=== PATIENT | female | born 1975 | race Caucasian/White ===

== ENCOUNTER 2019-05-17 01:43 | Inpatient (IN) | payer OTHER ==
--- NOTE | 2019-05-16 10:41 | HISTORY AND PHYSICAL ---
DATE OF ADMISSION: May 17, 2019 IDENTIFICATION/CHIEF COMPLAINT Inga is a 43-year old woman with a chief complaint of intractable left knee pain. HISTORY OF PRESENT ILLNESS Patient has a longstanding history of arthritis. This has been managed conservatively for a long time but has become progressively painful and debilitating and refractory to conservative care. Surgery is indicated to relieve symptoms after failure of nonoperative measures. PAST MEDICAL HISTORY 1. History of atrial fibrillation. 2. Struggle with chronic weight management. 3. Type 2 diabetes or prediabetes. PAST SURGICAL HISTORY Negative. FAMILY HISTORY Notable for both parents with diabetes, mother with hypertension and anemia. SOCIAL HISTORY Negative for tobacco use. She drinks alcohol socially on occasion. Denies abuse. ALLERGIES Denies. CURRENT MEDICATIONS 1. Metformin 1000 mg p.o. q.h.s. 2. Magnesium one 500 mg tablet p.o. q.d. 3. Celebrex 200 mg p.o. b.i.d. 4. Lisinopril 40 mg p.o. q.d. 5. Flecainide 100 mg p.o. b.i.d. 6. Xarelto 20 mg p.o. q.d. REVIEW OF SYSTEMS Noncontributory. PHYSICAL EXAMINATION GENERAL: Healthy female. She appears stated age. HEENT: Normocephalic, atraumatic. NECK: Supple. LUNGS: Clear. ABDOMEN: Soft. ORTHOPEDIC EXAM The left knee has extreme crepitus. She has moderate to large effusion. She is stiffened on range of motion. Gross stability is good. Extensor function is intact. Radiographs demonstrate end-stage knee DJD. ASSESSMENT Left knee end-stage degenerative joint disease, progressively painful and debilitating and refractory to conservative care. PLAN Per patient's request, we are going to proceed with total knee arthroplasty. The nature of the procedure, risks, benefits and anticipatory rehab course were outlined. The risks of the procedure include, but are not limited to, , major medical or anesthetic complications, infection, neurovascular injury, blood transfusion, stiffness, scarring, fracture, tendon rupture, instability, implant loosening, migration or failure, persistent recurrent pain, need for additional surgery and other unforeseen. We spent a lot of time today discussing the concerns about arthroplasty in the young and the risks associated with revision. All of her questions were answered. No guarantees given or implied. Signed permit is in the chart. [facility]
[2019-05-16 15:18] LABS: INR 0.96
[2019-05-17] VITALS (9 sets, daily range): BP systolic 111–143; BP diastolic 70–99
[~2019-05-17] VITALS: Ht 175.3 cm; Wt 132.9 kg
[~2019-05-17 01:43] MED LIST: ACAI500C PO; CALC166. PO; CELE-1 PO; CHOL10005 PO; CHRO1TAB2 TOP; CINN500C12 PO; FLE100 PO; GEMF600T96 PO; GLUC100026 PO; LISI-374 PO; MAGNESIUM PO; MELA3TAB45 PO; METF-452 PO; MILK500C2 PO; RASP100C PO; RIVA10TA PO
[2019-05-17] MEDS ORDERED: LIDOCAINE/SOD BICARB 8.4% SYR ID ONE (06:15)
[2019-05-17] MEDS ORDERED: CELECOXIB 200 MG CAP PO ONE (06:15)
[2019-05-17] MEDS ORDERED: ceFAZolin(*) 1 GM VIAL 3 GM in NS(*) 0.9% 100 ML BAG 100 ML IVPB ONE ×2 (06:15)
[2019-05-17] MEDS ORDERED: PREGABALIN 150 MG CAPSULE PO ONE (06:15)
[2019-05-17] MEDS ORDERED: MIDAZOLAM 2 MG/2 ML VIAL IVP PRN (06:15)
[2019-05-17] MEDS ORDERED: FAMOTIDINE 20 MG TAB PO ONE (06:15)
[2019-05-17] MEDS ORDERED: TRANEXAMIC AC 1000 MG/10ML SDV 1,000 MG in DEXTROSE 5% 50 ML BAG 50 ML IV ONE ×2 (06:15)
[2019-05-17] MEDS ORDERED: ACETAMINOPHEN 500 MG TAB PO ONE (06:15)
[2019-05-17] MEDS ORDERED: ROPIVACAINE/EPI/CLONIDINE/KET 50 ML SYRINGE INJ ONE ×2 (06:15)
[2019-05-17] MEDS ORDERED: NORMOSOL R SOLN(*) 1000 ML BAG 1,000 ML IV PRN ×2 (06:15→14:05)
[2019-05-17] MEDS ORDERED: METOCLOPRAMIDE 10 MG/2 ML SDV ONE (07:59)
[2019-05-17] MEDS ORDERED: LIDOCAINE MPF 1% 5 ML VIAL ONE (07:59)
[2019-05-17] MEDS ORDERED: PROPOFOL EMUL(*) 10MG/ML 20 ML 40 ML ONE (07:59)
[2019-05-17] MEDS ORDERED: ONDANSETRON 4 MG/2 ML VIAL ONE (07:59)
[2019-05-17] MEDS ORDERED: DEXAMETHASONE SOD 4 MG/ML VIAL ONE (08:00)
[2019-05-17] MEDS ORDERED: fentaNYL CITR 100 MCG/2 ML AMP ONE ×2 (08:04→14:16)
[2019-05-17] MEDS ORDERED: VANCOMYCIN 1 GM VIAL ONE (10:41)
[2019-05-17] MEDS ORDERED: ePHEDrine 25 MG/5 ML DISP.SYR IVP ONE (11:20)
[2019-05-17] MEDS ORDERED: diphenhydrAMINE 50 MG/ML VIAL IVP PRN (14:05)
[2019-05-17] MEDS ORDERED: PROMETHAZINE 25 MG/ML 1 ML AMP IVP PRN (14:05)
[2019-05-17] MEDS ORDERED: BENZOCAINE/MENTHOL 1 EACH LOZG PO PRN (14:05)
[2019-05-17] MEDS ORDERED: diphenhydrAMINE 25 MG CAP PO PRN (14:05)
[2019-05-17] MEDS ORDERED: FLUSH 10 ML SYR IVP PRN (14:05)
[2019-05-17] MEDS ORDERED: BISACODYL 10 MG SUPP PR PRN (14:05)
[2019-05-17] MEDS ORDERED: ZOLPIDEM TARTRATE 5 MG TAB PO PRN (14:05)
[2019-05-17] MEDS ORDERED: ACETAMINOPHEN 325 MG TAB PO PRN (14:05)
[2019-05-17] MEDS ORDERED: MAGNESIUM HYDROXIDE* 30ML UDCP PO PRN (14:05)
--- NOTE | 2019-05-17 14:11 | RADIOLOGY IMAGING REPORT ---
FACILITY: [facility] [place] PATIENT NAME: Annette Hermosillo : 1975 MR: [id number] V: [id number] EXAM DATE: ORDERING PHYSICIAN: GINA MALONE TECHNOLOGIST: Location: [facility] [place] Patient: Annette Hermosillo : 1975 Visit/Account:[id number] Date of Sevice: 05/17/2019 KNEE LIMITED LEFT Indication: POST LEFT TKA Comparison: None. Findings: There are postoperative changes from a left total knee arthroplasty. The femoral, tibial, and patellar components are normal in position. There is soft tissue swelling in the prepatellar spa ce. Impression: Postoperative changes left total knee arthroplasty. Report Dictated By: Kingsley Angel at 05/17/2019 2:01 PM Report E-Signed By: Kingsley Angel at 05/17/2019 2:02 PM WSN:[id number]
--- NOTE | 2019-05-17 14:39 | OPERATIVE REPORT 1 ---
EVENT DATE: May 17, 2019 SURGEON: Richard Santo MD ANESTHESIOLOGIST: Silvio Adames MD ANESTHESIA: General plus spinal. DENTAL DIRECTOR: EDIL Alvarez PREOPERATIVE DIAGNOSIS Left knee degenerative joint disease. POSTOPERATIVE DIAGNOSIS Left knee degenerative joint disease. PROCEDURE PERFORMED Left total knee arthroplasty. ESTIMATED BLOOD LOSS Minimal. DRAINS None. SPECIMENS None. COMPLICATIONS None apparent. TOURNIQUET TIME 53 minutes. IMPLANTS USED [place] Triathlon knee system, a 4 size PS femur, a 5 standard tibial baseplate, a 33 mm universal symmetric all polyethylene patella button, 13 mm PS tibial tray, X3 polyethylene. INDICATIONS Annette is a 43-year old woman with end-stage arthritis in her knee. She has had progressive pain and disability refractory to prolonged conservative care. Surgery is indicated to relieve symptoms after failure of nonoperative measures. DESCRIPTION OF PROCEDURE The patient was taken to the operating room and placed supine on the operating table. General anesthesia was induced after spinal block was administered by the anesthesiologist. Antibiotics and TXA were administered IV. The left lower extremity was prepped and draped in the usual sterile fashion for orthopedic surgery. The limb was exsanguinated with an Esmarch bandage. The tourniquet was inflated to 275 mmHg. A midline longitudinal incision was made and carried down through the skin and subcutaneous tissue to the extensor mechanism. A full-thickness flap was developed far enough medially to allow medial parapatellar arthrotomy to be performed. The patella was everted. The knee was brought into a flexed position. The fat pad, anterior horns of the menisci and cruciate ligaments were debrided. Subperiosteal medial release was initiated in titrated fashion to start to balance the knee. A step drill was used to enter the distal femur. A 10-inch long alignment guide was used to engage the isthmus. Cut was set for 6 degrees of valgus relative to the anatomic axis. A 10 mm resection block was applied and pinned and distal femoral cut was made with an oscillating saw. The AP sizing guide was applied to this cut, positioned for 3 degrees of external rotation relative to the posterior condyles. A size 4 was optimal without risk of notching. The four-in-one cutting block was applied. Anterior, posterior, posterior chamfer and anterior chamfer cuts were made respectively. A PS block was applied and centered appropriately mediolateral and the bone was removed from the box. The trial femur has nice [id number] fit. Attention was turned to tibial preparation. The extramedullary guide was applied and positioned for varus, valgus, posterior slope and rotation. This was set to resect 9 from the relatively intact lateral tibial plateau. It was dropped down another millimeter or two to ensure an adequate cut. The block was pinned, extramedullary alignment check was made and the cut was made with an oscillating saw. Significant osteophytes were removed from the posterior recess. All additional flecks removed. At this point, the gaps were balanced and symmetric. No additional release is required. A size 4 baseplate provides optimal bony coverage without soft tissue overhang and this was inserted along with a trial liner and trial femur. The knee was brought into extension. The patella was taken from a starting thickness of 23 mm to a residual of 14 with a patellar clamp and an oscillating saw. The 33 provides optimal bony coverage without soft tissue overhang. Lug holes were drilled. The patella tracts nicely with a no-touch technique. Final tibial preparation consisted of ensuring appropriate rotational and translational position of the component. The box was reamed and the fin was punched. Surfaces were lavaged. A mix of methylmethacrylate was made and the components were cemented in a single stage. Once the cement was fully polymerized, the tourniquet was deflated and hemostasis was assured. The wounds were copiously lavaged to remove all loose debris. The 16 PS tibial tray liner provides optimal stability, allowing the knee to drop to full extension without hyperextension, providing optimal soft tissue tension and stability. The tray was lavaged and dried and the actual liner was locked into the baseplate. Joint was reduced. The arthrotomy was closed in flexion with #2 Ethibond, subcutaneous tissue with 3-0 Vicryl and the skin with a ZipLine closure. Xeroform was applied followed by a dry, sterile dressing and a compression wrap. The patient was awakened from the anesthesia and taken to the recovery room in stable condition, having tolerated the procedure well. Plan is for standard TKA rehab protocol. [facility]
[2019-05-17] MEDS: APAP/HYDROCODONE 325/7.5 TAB PO PRN ×2 (15:50→20:16)
--- NOTE | 2019-05-17 15:52 | Hospitalist Consultation ---
History of Present Illness Requesting Physician Dr. Santo Reason for Consult Medical Management of Comorbidities Chief Complaint s/p left knee replacement History of Present Illness She was admitted s/p left knee replacement. It is reported the surgery went well and without complication. History Problems: (1) Hypertension Status: Chronic (2) Hyperlipidemia Status: Chronic (3) Type 2 diabetes mellitus Status: Chronic (4) Atrial fibrillation Status: Chronic Home Meds Reported Medications Gemfibrozil (GEMFIBROZIL) 600 Mg Tablet, 600 MG PO BID 05/10/19 Milk Thistle (MILK THISTLE) 500 Mg Capsule, 500 MG PO QDAY, CAPSULE 05/10/19 Flecainide Acetate (FLECAINIDE ACETATE) 100 Mg Tab, 100 MG PO BID, TAB 05/10/19 Rivaroxaban 10 MG (Xarelto 10 MG) 10 Mg Tablet, 20 MG PO QDAY 05/10/19 Cholecalciferol (Vitamin D3) (VITAMIN D3) 1,000 Unit Tablet, 1000 UNIT PO, TAB 05/10/19 Melatonin (MELATONIN) 3 Mg Tablet.er, 3 MG PO QDAY 05/10/19 Glucosamine Sulfate 2KCL (GLUCOSAMINE) 1,000 Mg Tablet, 1000 MG PO QDAY 05/10/19 Calcium/Vits D3/C/K2/Minerals (Bone Essentials Capsule) 166.75 Mg Capsule, 1 CAP PO QDAY 05/10/19 [Magnesium] No Conflict Check, 500 MG PO QDAY 05/10/19 Metformin Hcl (METFORMIN HCL) 1,000 Mg Tablet, 1 TAB PO BID, TAB 05/10/19 Acai Gill Extract (ACAI) 500 Mg Capsule, 1000 MG PO QDAY, CAPSULE 05/10/19 Cinnamon Bark (CINNAMON) 500 Mg Capsule, 1000 MG PO QDAY, CAPSULE 05/10/19 Chrom Yola/Brindall Gill (GARCINIA CAMBOGIA TABLET) 1 Each Tablet, 100 MG TOP QDAY 05/10/19 Lisinopril (LISINOPRIL) 40 Mg Tablet, 40 MG PO QDAY, TAB 05/10/19 Celecoxib (CELEBREX) 200 Mg Capsule, 200 MG PO BID, CAPSULE 05/10/19 Discontinued Reported Medications Raspberry Ketone (Raspberry Ketones) 100 Mg Capsule, 600 MG PO QDAY 05/10/19 Allergies: Coded Allergies: No Known Drug Allergies (Unverified , 05/10/19) Patient History: FH: HTN (hypertension) MOTHER FH: anemia MOTHER FH: arthritis MOTHER Hx Smoking: No Caffeine Intake: Coffee Caffeine/Cups Per Day: 1 CPD Hx Alcohol Use: Yes Hx Substance Use Disorder: No Review of Systems All Systems Reviewed/Normal: Yes, Except as Noted Exam Vital Signs Vital Signs Date Time Temp Pulse Resp B/P (MAP) Pulse Ox O2 Delivery O2 Flow Rate FiO2 05/17/19 15:15 97.7 82 16 130/84 (99) 98 Nasal Cannula 0.5 General Appearance: Alert, Awake, No Acute Distress, Afebrile Neuro: No Gross deficits Cardiovascular: Regular Rate and Rhythm Respiratory: No Respiratory Distress, Clear to Auscultation Psych: Alert & Oriented X3, Appropriate Mood & Affect Assessment and Plan Problems: (1) Status post left knee replacement Status: Acute Assessment & Plan: Followed by Dr. Santo. She will be placed on her usual dose of Xarelto for DVT prophylaxis. (2) Atrial fibrillation Status: Chronic Assessment & Plan: She is on chronic treatment with Flecainide and Xarelto. Continue. (3) Type 2 diabetes mellitus Status: Chronic Assessment & Plan: Continue chronic Metformin. She will also be placed on SS insulin #2, ADA diet, and AC/ HS blood glucose monitoring. (4) Hypertension Status: Chronic Assessment & Plan: Continue chronic Lisinopril with hold parameters. (5) Hyperlipidemia Status: Chronic Assessment & Plan: Continue chronic Gemfibrozil. Venous Thromboembolism Antithrombotics Is Pt On Any Antithrombotics?: Yes Problem Qualifiers (1) Hypertension: Hypertension type: essential hypertension Qualified Codes: I10 - Essential (primary) hypertension KATHLEEN MOORE DRUM SANDER May 17, 2019 15:52
[2019-05-17] MEDS: CELECOXIB 200 MG CAP PO SCH (16:31)
[2019-05-17] MEDS: INSULIN HUM LISPRO 100 UN/ML 3 ML VIAL SUBQ PRN ×2 (17:27→20:18)
--- NOTE | 2019-05-17 17:55 | NUR ---
Physical Therapy Impression PT eval completed. Pt tolerated ambulation to/from BR with good step-through technique. Pt's dressing did become dislodged inferiorly and some bleeding noted at superior edge of dressing. PT applied abd pad secured with ian wrap upon return to bed and then instructed pt in use of CPM and advancing flexion as tolerated. Physical Therapy Goals 1. Pt to be SBA/CGA for bed mobility and supine to/from sit 2. Pt to be SBA/CGA for sit to/from stand transfers 3. Pt to tolerate ambulation x 100' with 4WW safely 4. Pt to complete up/down platform step x 2 reps to simulate entry to home. Patient's Goals
[2019-05-17] MEDS ORDERED: NS(*) 0.9% 250 ML BAG 250 ML ONE (19:08)
[2019-05-17] MEDS: ceFAZolin(*) 1 GM VIAL 1 GM in NS(*) 0.9% 100 ML MINI-BAG 100 ML IVPB SCH (19:14)
[2019-05-17] MEDS: GEMFIBROZIL 600 MG TAB PO SCH (20:16)
[2019-05-17] MEDS: FLECAINIDE ACETATE 100 MG TAB PO SCH (20:17)
[2019-05-17] MEDS: DIAZEPAM 5 MG TAB PO PRN (21:27)
[2019-05-17] MEDS: MELATONIN 3 MG TAB PO SCH (21:27)
[2019-05-18 03:19] VITALS: BP 116/67
[2019-05-18] MEDS: ceFAZolin(*) 1 GM VIAL 1 GM in NS(*) 0.9% 100 ML MINI-BAG 100 ML IVPB SCH ×2 (03:20→11:12)
[2019-05-18] MEDS: APAP/HYDROCODONE 325/7.5 TAB PO PRN ×5 (03:44→20:33)
[2019-05-18] MEDS: DIAZEPAM 5 MG TAB PO PRN ×2 (04:14→11:02)
[2019-05-18 07:41] VITALS: BP 137/85
[2019-05-18] MEDS ORDERED: HYDR-654 PO (07:52)
[2019-05-18] MEDS: metFORMIN HCL 500 MG TAB PO SCH ×2 (07:57→17:10)
[2019-05-18] MEDS: CELECOXIB 200 MG CAP PO SCH ×2 (07:57→17:10)
[2019-05-18] MEDS ORDERED: RIVAROXABAN 10 MG TAB PO SCH ×2 (09:00→21:00)
[2019-05-18] MEDS: LISINOPRIL 20 MG TAB PO SCH (09:00)
[2019-05-18 09:17] VITALS: Ht 175.3 cm; Wt 132.9 kg
[2019-05-18] MEDS: FLECAINIDE ACETATE 100 MG TAB PO SCH ×2 (09:26→20:33)
[2019-05-18] MEDS: INSULIN HUM LISPRO 100 UN/ML 3 ML VIAL SUBQ PRN ×4 (09:27→20:34)
[2019-05-18] MEDS: GEMFIBROZIL 600 MG TAB PO SCH ×2 (09:27→20:33)
--- NOTE | 2019-05-18 09:29 | Hospitalist Progress Note ---
Subjective Progress Notes Subjective She was admitted s/p knee replacement. She reports she has pain to the surgical site. Patient Complains of: Cardiovascular: No: Chest Pain Respiratory: No: Shortness of Breath Physical Exam Vital Signs Date Time Temp Pulse Resp B/P (MAP) Pulse Ox O2 Delivery O2 Flow Rate FiO2 05/18/19 07:41 96 Room Air 05/18/19 07:41 97.9 84 16 137/85 (102) 05/18/19 03:19 2.0 Intake and Output 05/18/19 01:03 Intake Total 3480 ml Output Total 0 ml Balance 3480 ml Intake Oral 1380 ml IV Total 2000 ml Other 100 ml Output Estimated Blood Loss 0 ml # Voids 1 General Appearance: Alert, Awake, No Acute Distress, Afebrile Neuro: No Gross deficits Cardiovascular: Regular Rate and Rhythm Respiratory: No Respiratory Distress, Clear to Auscultation Psych: Alert & Oriented X3, Appropriate Mood & Affect Assessment and Plan Problems: (1) Status post left knee replacement Status: Acute Assessment & Plan: Followed by Dr. Santo. She will be placed on her usual dose of Xarelto for DVT prophylaxis. (2) Atrial fibrillation Status: Chronic Assessment & Plan: She is on chronic treatment with Flecainide and Xarelto. Continue. (3) Type 2 diabetes mellitus Status: Chronic Assessment & Plan: Continue chronic Metformin. She will also be placed on SS insulin #2, ADA diet, and AC/ HS blood glucose monitoring. She has not been following ADA diet. She reports she also does not check her sugars at home. Encouraged better control of glucose levels post-operatively to prevent infection. (4) Hypertension Status: Chronic Assessment & Plan: Continue chronic Lisinopril with hold parameters. (5) Hyperlipidemia Status: Chronic Assessment & Plan: Continue chronic Gemfibrozil. (6) Morbid obesity with BMI of 40.0-44.9, adult Status: Chronic Assessment & Plan: BMI 43. Exam Sepsis Risk: No Definite Risk Problem Qualifiers (1) Atrial fibrillation: Atrial fibrillation type: paroxysmal Qualified Codes: I48.0 - Paroxysmal atrial fibrillation (2) Hypertension: Hypertension type: essential hypertension Qualified Codes: I10 - Essential (primary) hypertension KATHLEEN MOORE [facility] May 18, 2019 09:29
--- NOTE | 2019-05-18 10:52 | NUR ---
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 Pt demos decreased balance and decreased level of cognition as well as decreased alertness. Pt notes that she felt weak and confused after transferring to toilet. BP in safe range, however, nursing alerted to ensure pt's safety and assist with W/C follow back to bed. PT will attempt distance ambulation goal this afternoon. Pt tearful upon return to bed and notes that pain still does not feel controlled effectively. Physical Therapy Goals 1. Pt to be SBA/CGA for bed mobility and supine to/from sit 2. Pt to be SBA/CGA for sit to/from stand transfers 3. Pt to tolerate ambulation x 100' with 4WW safely 4. Pt to complete up/down platform step x 2 reps to simulate entry to home. Patient's Goals
[2019-05-18 11:10] VITALS: BP 134/79
--- NOTE | 2019-05-18 15:38 | NUR ---
Physical Therapy Impression Patient presents in room with nursing and is sitting at EOB. 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 Patient instructed in gait training to toilet with CGA for toilet transfer. Patient then ambulated in hallway and back to room ~75 feet with encouragement to increase distance. Patient had step to gait and needed cuing for posture. Patient is unable to perform step through gait at this time. Patient did report of slight dizziness with ambulation but was able to make it back to her bed. Patient had several standing rest breaks during gait. Patient was shown exercises with non surgical leg as she was back in CPM. Patient was left in bed with CPM set at 0 to 40 with all needs met. Physical Therapy Goals 1. Pt to be SBA/CGA for bed mobility and supine to/from sit 2. Pt to be SBA/CGA for sit to/from stand transfers 3. Pt to tolerate ambulation x 100' with 4WW safely 4. Pt to complete up/down platform step x 2 reps to simulate entry to home. Patient's Goals
[2019-05-18 15:39] VITALS: BP 146/85
[2019-05-18 20:30] VITALS: BP 135/80
[2019-05-18] MEDS: MELATONIN 3 MG TAB PO SCH (21:25)
[2019-05-18 23:38] VITALS: BP 126/78
[2019-05-19] MEDS: DIAZEPAM 5 MG TAB PO PRN (00:07)
[2019-05-19 02:24] VITALS: BP 152/83
[2019-05-19] MEDS: APAP/HYDROCODONE 325/7.5 TAB PO PRN ×3 (02:26→15:31)
[2019-05-19 07:36] VITALS: BP 134/74
[2019-05-19] MEDS: metFORMIN HCL 500 MG TAB PO SCH (08:20)
[2019-05-19] MEDS: INSULIN HUM LISPRO 100 UN/ML 3 ML VIAL SUBQ PRN (08:20)
[2019-05-19] MEDS: CELECOXIB 200 MG CAP PO SCH (08:21)
[2019-05-19] MEDS: GEMFIBROZIL 600 MG TAB PO SCH (08:21)
[2019-05-19] MEDS: LISINOPRIL 20 MG TAB PO SCH (08:21)
[2019-05-19] MEDS: FLECAINIDE ACETATE 100 MG TAB PO SCH (08:21)
--- NOTE | 2019-05-19 10:24 | Hospitalist Progress Note ---
Subjective Progress Notes Subjective She was admitted s/p knee replacement. She has no complaints this morning. She had no acute events overnight. Patient Complains of: Cardiovascular: No: Chest Pain Respiratory: No: Shortness of Breath Physical Exam Vital Signs Date Time Temp Pulse Resp B/P (MAP) Pulse Ox O2 Delivery O2 Flow Rate FiO2 05/19/19 07:36 98.5 85 16 134/74 (94) 90 Room Air 05/19/19 02:24 1.0 Intake and Output 05/19/19 01:03 Intake Total 1670 ml Balance 1670 ml Intake Oral 1460 ml IV Total 210 ml # Voids 6 General Appearance: Alert, Awake, No Acute Distress, Afebrile Neuro: No Gross deficits Cardiovascular: Regular Rate and Rhythm Respiratory: No Respiratory Distress, Clear to Auscultation Psych: Alert & Oriented X3, Appropriate Mood & Affect Assessment and Plan Problems: (1) Status post left knee replacement Status: Acute Assessment & Plan: Followed by Dr. Santo. She will be placed on her usual dose of Xarelto for DVT prophylaxis. (2) Atrial fibrillation Status: Chronic Assessment & Plan: She is on chronic treatment with Flecainide and Xarelto. Continue. (3) Type 2 diabetes mellitus Status: Chronic Assessment & Plan: Continue chronic Metformin. She will also be placed on SS insulin #2, ADA diet, and AC/ HS blood glucose monitoring. She has not been following ADA diet. She reports she also does not check her sugars at home. Encouraged better control of glucose levels post-operatively to prevent infection. (4) Hypertension Status: Chronic Assessment & Plan: Continue chronic Lisinopril with hold parameters. (5) Hyperlipidemia Status: Chronic Assessment & Plan: Continue chronic Gemfibrozil. (6) Morbid obesity with BMI of 40.0-44.9, adult Status: Chronic Assessment & Plan: BMI 43. Exam Sepsis Risk: No Definite Risk Problem Qualifiers (1) Atrial fibrillation: Atrial fibrillation type: paroxysmal Qualified Codes: I48.0 - Paroxysmal atrial fibrillation (2) Hypertension: Hypertension type: essential hypertension Qualified Codes: I10 - Essential (primary) hypertension KATHLEEN MOORE [employer]OURNEY[employer] PIP[employer]ITTER May 19, 2019 10:24
--- NOTE | 2019-05-19 10:52 | NUR ---
Physical Therapy Impression PT goals met with distance ambulation using 4WW and safe technique with stairs to simulate entry to home. Pt notes that pain is significantly better controlled than yesterday and from a mobility stand point, is ready to discharge to sister's home locally. Pt is scheduled for out pt therapy at [facility] in [place] beginning Thursday. Physical Therapy Goals 1. Pt to be SBA/CGA for bed mobility and supine to/from sit 2. Pt to be SBA/CGA for sit to/from stand transfers 3. Pt to tolerate ambulation x 100' with 4WW safely 4. Pt to complete up/down platform step x 2 reps to simulate entry to home. Patient's Goals
[2019-05-19] MEDS ORDERED: OXYC-823 PO (11:12)
== END 2019-05-19 17:25 | disposition home or self-care (01) | DRG 470 ==
LOC: OR 01:43 → MED 15:10
PROVIDERS: ADMIT Orthopaedic Surgery; ATTEND Orthopaedic Surgery
PROC: 0SRD0J9 Replacement of Left Knee Joint with Synthetic Substitute, Cemented, Open Approach (ICD-10-PCS; principal; 2019-05-17 11:13)
DX: M17.12 Unilateral primary osteoarthritis, left knee (principal); Z68.41 Body mass index [BMI] 40.0-44.9, adult; I48.2 Chronic atrial fibrillation; E11.9 Type 2 diabetes mellitus without complications; I10 Essential (primary) hypertension; E78.5 Hyperlipidemia, unspecified; E66.01 Morbid (severe) obesity due to excess calories; Z79.84 Long term (current) use of oral hypoglycemic drugs; Z79.01 Long term (current) use of anticoagulants
CPT/HCPCS: 36415; 36416; 82948; 85610; 86850; 86900; 86901; 97161; C1713; C1776; J0690; J1100; J2001; J2250; J2405; J2704; J2765; J3010; J3370; J7050; J7060